=== PATIENT | female | born 1995 | race Caucasian/White ===

== ENCOUNTER 2016-12-23 20:36 | Emergency (ER) | payer BC ==
[~2016-12-23] VITALS: Ht 160 cm; Wt 63.1 kg
[~2016-12-23 20:36] MED LIST: DOXY100T PO; HYDR-3533 PO; Z.0.BCPILL PO
[2016-12-23] MEDS ORDERED: GADODIAMIDE PF 287 MG/ML 5 ML VIAL (for RAD MRI) IVCONTRAST ONE (20:37)
[2016-12-23 20:56] VITALS: BP 132/84; PULSE 87; RESP 12; TEMP 98.4; O2SAT 98
[2016-12-23 22:56] VITALS: BP 132/84; PULSE 87; RESP 14; TEMP 98.4
[2016-12-23] MEDS ORDERED: ACETAMINOPHEN 650 MG/20.3 ML UDC PO ONE (23:15)
--- NOTE | 2016-12-23 23:24 | PD ---
HPI Chief Complaint: Eye Problems/Injury Time Seen by Provider: 22:57 Travel History International Travel<30 days: No Contact w/Intl Traveler<30days: No Traveled to known affect area: No History of Present Illness HPI The patient is a 21-year-old female that complains of gradual onset pain around her left eye which is progressive and worsening. She went to an poultry pathologist today and they told her to go to a retinologist. She went to a retinologist and they told her she needed to see a neurologist. She came here to the emergency department today wanting MRI of the brain and orbits. PFSH Past Medical History Developmental Delay: No Diabetes: No Diminished Hearing: No Fibromyalgia: Yes Glaucoma: No Hepatitis: No Hiatal Hernia: No Hypertension: No Neurologic: Yes (neurosensitivity and biochemical deficiency) Respiratory: Yes Immunizations Current: Yes Thyroid Disease: No Influenza Vaccination: Yes PNEUMOCCOCAL Vaccine (Year): 2 ?: Unknown LMP: 12/02/2016 : 0 Para: 0 Miscarriage: 0 : 0 Past Surgical History Pacemaker: No Other Surgery: Yes (BREAST AUGMENTATION) Social History Alcohol Use: Yes (OCCASSIONALLY) Tobacco Use: No Substance Use: No Allergies-Medications (Allergen,Severity, Reaction): Coded Allergies: penicillin G (Unverified Allergy, Intermediate, RASH, 11/22/16) Reported Meds & Prescriptions Reported Meds & Active Scripts Active Lortab 5 mg/325 mg (Hydrocodone/Acetaminophen 5 mg/325 mg) 1 Tab 1 Tab PO Q4H PRN Doxycycline Hyclate 100 mg (Doxycycline Hyclate) 100 Mg Tab 1 Tab PO Q12H 14 Days Reported Control Pills (Miscellaneous Medication) Tab 1 Tab PO DAILY Review of Systems Except as stated in HPI: all other systems reviewed are Neg Physical Exam Narrative GENERAL: The patient is alert, oriented 3 in slight apparent distress with her left eye discomfort. Her vital signs are normal. SKIN: Focused skin assessment warm/dry. HEAD: Atraumatic. Normocephalic. EYES: Pupils equal and round. No scleral icterus. No injection or drainage. The fundi appear sharp bilaterally. ENT: No nasal bleeding or discharge. Mucous membranes pink and moist. NECK: Trachea midline. No JVD. CARDIOVASCULAR: Regular rate and rhythm. No murmur appreciated. RESPIRATORY: No accessory muscle use. Clear to auscultation. Breath sounds equal bilaterally. GASTROINTESTINAL: Abdomen soft, non-tender, nondistended. Hepatic and splenic margins not palpable. MUSCULOSKELETAL: No obvious deformities. No clubbing. No cyanosis. No edema. NEUROLOGICAL: Awake and alert. No obvious cranial nerve deficits. Motor grossly within normal limits. Normal speech. PSYCHIATRIC: Appropriate mood and affect; insight and judgment normal. Data Data Last Documented VS Vital Signs Date Time Temp Pulse Resp B/P (MAP) Pulse Ox O2 Delivery O2 Flow Rate FiO2 12/23/16 23:06 15 12/23/16 22:56 98.4 87 132/84 (100) 12/23/16 20:56 98 Orders Orders Complete Blood Count With Diff (12/23/16 23:06) Basic Metabolic Panel (Bmp) (12/23/16 23:06) Beta Hcg (Quant/Titer) (12/23/16 23:06) Acetaminophen 650 Mg/20 Ml Liq (Tylenol (12/23/16 23:15) Mri Brain W&W/O Contrast (12/24/16 23:03) Mri Orbits W&W/O Contrast (12/24/16 ) Gadodiamide Pf Inj (Omniscan Pf Inj) (12/23/16 20:37) Labs Laboratory Tests Test 12/23/16 23:20 White Blood Count 13.3 TH/MM3 Red Blood Count 5.45 MIL/MM3 Hemoglobin 15.5 GM/DL Hematocrit 45.7 % Mean Corpuscular Volume 83.9 FL Mean Corpuscular Hemoglobin 28.4 PG Mean Corpuscular Hemoglobin Concent 33.8 % Red Cell Distribution Width 12.1 % Platelet Count 311 TH/MM3 Mean Platelet Volume 8.9 FL Neutrophils (%) (Auto) 71.5 % Lymphocytes (%) (Auto) 20.9 % Monocytes (%) (Auto) 5.9 % Eosinophils (%) (Auto) 1.1 % Basophils (%) (Auto) 0.6 % Neutrophils # (Auto) 9.5 TH/MM3 Lymphocytes # (Auto) 2.8 TH/MM3 Monocytes # (Auto) 0.8 TH/MM3 Eosinophils # (Auto) 0.1 TH/MM3 Basophils # (Auto) 0.1 TH/MM3 CBC Comment DIFF FINAL Differential Comment Blood Urea Nitrogen 5 MG/DL Creatinine 0.78 MG/DL Random Glucose 99 MG/DL Calcium Level 9.3 MG/DL Sodium Level 137 MEQ/L Potassium Level 3.8 MEQ/L Chloride Level 102 MEQ/L Carbon Dioxide Level 28.4 MEQ/L Anion Gap 7 MEQ/L Estimat Glomerular Filtration Rate 92 ML/MIN Human Chorionic Gonadotropin, Quant LESS THAN 1 MIU/ML MDM Medical Decision Making Medical Screen Exam Complete: Yes Emergency Medical Condition: Yes Medical Record Reviewed: Yes Interpretation(s) The MRI of the orbits had a slight artifact, probably iron-containing eyeshadow , but are otherwise negative. The MRI of the brain with and without contrast is negative. Differential Diagnosis Orbital tumor, iritis, intracranial bleed-unlikely, eye pain etiology undetermined Narrative Course The patient appears to have a high pain etiology undetermined. She wears glasses and this may be a refractive air. Nevertheless, she is to follow-up with a neurologist. She is given the MR readings and the discs to take to his office. Diagnosis Primary Impression: Left eye pain Additional Instructions: You have left eye pain etiology undetermined. The next step is to follow-up with a neurologist. Try to cover pain with [id number] liquid Motrin and liquid Tylenol. Disposition: 01 DISCHARGE HOME Condition: Stable Reno Ramirez MD Dec 23, 2016 23:24
[2016-12-23 23:27] LABS: AUTOMATED NEUTROPHIL # 9.5 TH/MM3 (1.8-7.7); BASOPHIL # 0.1 TH/MM3 (0-0.2); BASOPHIL % 0.6 % (0.0-2.0); EOSINOPHIL # 0.1 TH/MM3 (0-0.4); EOSINOPHIL % 1.1 % (0.0-4.0); HEMATOCRIT 45.7 % (35.0-46.0); HEMO FLAGS DIFF FINAL; LYMPH % 20.9 % (9.0-44.0); LYMPHOCYTE # 2.8 TH/MM3 (1.0-4.8); MEAN CELL VOLUME 83.9 FL (80.0-100.0); MEAN CORPUSCULAR HEMOGLOBIN 28.4 PG (27.0-34.0); MEAN CORPUSCULAR HGB CONC 33.8 % (32.0-36.0); MONO % 5.9 % (0.0-8.0); NEUT % 71.5 % (16.0-70.0); PLATELET COUNT 311 TH/MM3 (150-450); RED BLOOD COUNT 5.45 MIL/MM3 (4.00-5.30); RED CELL DISTRIBUTION WIDTH 12.1 % (11.6-17.2); WHITE BLOOD COUNT 13.3 TH/MM3 (4.0-11.0)
[2016-12-23 23:35] LABS: CHLORIDE 102 MEQ/L (98-107); SODIUM (NA) 137 MEQ/L (136-145)
[2016-12-23 23:39] LABS: ANION GAP 7 MEQ/L (5-15); BICARBONATE 28.4 MEQ/L (21.0-32.0); BLOOD UREA NITROGEN 5 MG/DL (7-18)
[2016-12-23 23:42] LABS: GLOMERULAR FILTRATION RATE 92 ML/MIN (>89)
[2016-12-23 23:45] LABS: POTASSIUM 3.8 MEQ/L (3.5-5.1)
[2016-12-23 23:47] LABS: BETA HCG QUANT LESS THAN 1 MIU/ML (0-5)
--- NOTE | 2016-12-24 01:24 | RADRPT ---
EXAM DATE/TIME: 12/24/2016 00:31 [facility] COMPARISON: No previous studies available for comparison. INDICATIONS : Tumor. Left eye and temporal region pain. CONTRAST: 12 cc Omniscan (gadodiamide) IV MEDICAL HISTORY : Fibromyalgia. SURGICAL HISTORY : Breast augmentation. ENCOUNTER: Initial ACUITY: 1 month PAIN SCORE: 8/10 LOCATION: cranial TECHNIQUE: Multiplanar, multisequence MRI of the brain was performed both prior to and following the administrat ion of paramagnetic contrast. FINDINGS: CEREBRUM: The ventricles are normal for age. No evidence of midline shift, mass lesion, hemorrhage or acute in farction. No extraaxial fluid collections are seen. The pituitary gland and suprasellar cistern are normal in configuration. WHITE MATTER: No significant signal abnormalities are seen in the white matter. POSTERIOR FOSSA: The cerebellum and brainstem are intact. The 4th ventricle is midline. The cerebellopontine angle is unremarkable. The cerebellar tonsils are normal in position. DIFFUSION IMAGING: No focal areas of restricted diffusion are seen. No evidence of acute infarction. EXTRACRANIAL: The visualized portions of the orbits and paranasal sinuses are unremarkable. POST-CONTRAST: No abnormal areas of parenchymal or dural enhancement. No evidence of blood-brain barrier breakdown. CONCLUSION: Negative exam. Stefan Holloway MD on December 24, 2016 at 1:21 Board Certified Radiologist. This report was verified electronically.
--- NOTE | 2016-12-24 01:39 | RADRPT ---
EXAM DATE/TIME: 12/24/2016 00:31 [facility] COMPARISON: No previous studies available for comparison. INDICATIONS : Tumor. Left eye and temporal region pain. CONTRAST: 12 cc Omniscan (gadodiamide) IV MEDICAL HISTORY : Fibromyalgia. SURGICAL HISTORY : Breast augmentation. ENCOUNTER: Initial ACUITY: 1 month PAIN SCORE: 8/10 LOCATION: Left eye. TECHNIQUE: Multiplanar, multisequence MRI examination was performed. FINDINGS: PRESEPTAL: The preseptal soft tissues are normal thickness. GLOBES: There is susceptibility artifact in the region of the globes possibly due to regional eye shadow. As such, the globes themselves are incompletely evaluated. EXTRAOCULAR MUSCLES: Symmetric and normal thickness. ORBITAL ALMEIDA: Intact. The greater wing of the sphenoid is intact. OPTIC NERVES: Normal size. The optic canal is not enlarged. The retroconal fat is normal in appearance. LACRIMAL GLANDS: No evidence of mass. RETROAPICAL REGION: The optic chiasm is grossly intact. The visualized portion of the cavernous sinus and brainstem is i ntact. CONCLUSION: 1. Incomplete evaluation of the globes do to susceptibility artifact. This is probably due to some re gional iron containing eye shadow. 2. Otherwise negative Stefan Holloway MD on December 24, 2016 at 1:29 Board Certified Radiologist. This report was verified electronically.
[2016-12-24 02:24] VITALS: BP 145/81; PULSE 90; RESP 15; TEMP 98; O2SAT 97
== END 2016-12-24 03:01 | disposition home or self-care (01) ==
LOC: PHED 20:36
DX: H57.12 Ocular pain, left eye (principal); M79.7 Fibromyalgia
CPT/HCPCS: 70543; 70553; 80048; 84702; 85025; 99284; A9579

== ENCOUNTER 2017-02-12 21:44 | Emergency (ER) | payer BC ==
[2017-02-12 21:47] VITALS: BP 142/81; RESP 20; TEMP 97.9
--- NOTE | 2017-02-12 21:58 | PD ---
HPI Chief Complaint: Abdominal Pain Time Seen by Provider: 21:55 Travel History International Travel<30 days: No Contact w/Intl Traveler<30days: No Traveled to known affect area: No History of Present Illness HPI 21 year-old female presents to the emergency department by private transportation for complaint of abdominal pain. Patient has reportedly noted this discomfort for approximately 2 weeks. Pain is localized to the left side of the abdomen and left lower quadrant. No reported dysuria frequency urgency or flank pain. No reported hematuria. Patient is currently menstruating. Patient's had a partially 5 pound weight loss. Patient's had nausea without vomiting and diarrhea has been noted. Patient does not report mucoid or bloody stool. Patient denies fever or chills. Patient states that she frequently has diarrhea every time she eats food. No personal history family history of inflammatory bowel disease Crohn's or ulcerative colitis. Pain is moderate to severe in intensity. Patient has prior history of ovarian cyst. Patient does not take control pills or use contraceptives but is socially active. No vaginal discharge or abnormal bleeding. No reported history of endometriosis. Patient is unable to identify exacerbating or alleviating factors. Patient has taken no anti-inflammatories because she is afraid to take pills. [facility] Past Medical History Narrative Medical Fibromyalgia, breast augmentation; occasional alcohol use; nursing notes reviewed Developmental Delay: No Diabetes: No Diminished Hearing: No Fibromyalgia: Yes Glaucoma: No Hepatitis: No Hiatal Hernia: No Hypertension: No Neurologic: Yes (neurosensitivity and biochemical deficiency) Respiratory: Yes Immunizations Current: Yes Thyroid Disease: No PNEUMOCCOCAL Vaccine (Year): 2 LMP: NOW : 0 Para: 0 Miscarriage: 0 : 0 Past Surgical History Pacemaker: No Other Surgery: Yes (BREAST AUGMENTATION) Social History Alcohol Use: Yes (OCCASSIONALLY) Tobacco Use: No Substance Use: No Allergies-Medications (Allergen,Severity, Reaction): Coded Allergies: penicillin G (Unverified Allergy, Intermediate, RASH, 02/12/17) Reported Meds & Prescriptions Reported Meds & Active Scripts Active Review of Systems Except as stated in HPI: all other systems reviewed are Neg Physical Exam Narrative GENERAL: Well-developed well-nourished female in no acute distress no respiratory distress SKIN: Warm and dry. HEAD: Normocephalic. EYES: No scleral icterus. No injection or drainage. NECK: Supple, trachea midline. No JVD or lymphadenopathy. CARDIOVASCULAR: Regular rate and rhythm without murmurs, gallops, or rubs. RESPIRATORY: Breath sounds equal bilaterally. No accessory muscle use. GASTROINTESTINAL: Abdomen soft, mild left upper quadrant left lower quadrant tenderness to palpation without guarding or rebound, nondistended. MUSCULOSKELETAL: No cyanosis, or edema. BACK: Nontender without obvious deformity. No CVA tenderness. Data Data Last Documented VS Vital Signs Date Time Temp Pulse Resp B/P (MAP) Pulse Ox O2 Delivery O2 Flow Rate FiO2 02/12/17 23:07 79 20 137/79 (98) 99 02/12/17 21:47 97.9 Orders Orders Complete Blood Count With Diff (02/12/17 22:06) Comprehensive Metabolic Panel (02/12/17 22:06) Lipase (02/12/17 22:06) Urinalysis - C+S If Indicated (02/12/17 22:06) Ct Abd/Pel W Iv Contrast(Rout) (02/12/17 22:06) Iv Access Insert/Monitor (02/12/17 22:06) Ecg Monitoring (02/12/17 22:06) Oximetry (02/12/17 22:06) Sodium Chloride 0.9% Flush (Ns Flush) (02/12/17 22:15) Ed Urine Pregnancytest Poc (02/12/17 22:06) Ketorolac Inj (Toradol Inj) (02/12/17 23:30) Iohexol 350 Inj (Omnipaque 350 Inj) (02/12/17 23:23) Labs Laboratory Tests Test 02/12/17 22:00 02/12/17 22:12 White Blood Count 9.4 TH/MM3 Red Blood Count 5.28 MIL/MM3 Hemoglobin 14.9 GM/DL Hematocrit 44.7 % Mean Corpuscular Volume 84.6 FL Mean Corpuscular Hemoglobin 28.1 PG Mean Corpuscular Hemoglobin Concent 33.3 % Red Cell Distribution Width 12.3 % Platelet Count 286 TH/MM3 Mean Platelet Volume 9.2 FL Neutrophils (%) (Auto) 58.5 % Lymphocytes (%) (Auto) 29.8 % Monocytes (%) (Auto) 9.2 % Eosinophils (%) (Auto) 1.6 % Basophils (%) (Auto) 0.9 % Neutrophils # (Auto) 5.4 TH/MM3 Lymphocytes # (Auto) 2.8 TH/MM3 Monocytes # (Auto) 0.9 TH/MM3 Eosinophils # (Auto) 0.2 TH/MM3 Basophils # (Auto) 0.1 TH/MM3 CBC Comment DIFF FINAL Differential Comment Blood Urea Nitrogen 14 MG/DL Creatinine 0.77 MG/DL Random Glucose 84 MG/DL Total Protein 8.2 GM/DL Albumin 4.3 GM/DL Calcium Level 8.9 MG/DL Alkaline Phosphatase 72 U/L Aspartate Amino Transf (AST/SGOT) 14 U/L Alanine Aminotransferase (ALT/SGPT) 22 U/L Total Bilirubin 1.0 MG/DL Sodium Level 137 MEQ/L Potassium Level 3.4 MEQ/L Chloride Level 102 MEQ/L Carbon Dioxide Level 26.6 MEQ/L Anion Gap 8 MEQ/L Estimat Glomerular Filtration Rate 93 ML/MIN Lipase 114 U/L Urine Color YELLOW Urine Turbidity CLEAR Urine pH 6.0 Urine Specific Rogers 1.023 Urine Protein NEG mg/dL Urine Glucose (UA) NEG mg/dL Urine Ketones NEG mg/dL Urine Occult Blood NEG Urine Nitrite NEG Urine Bilirubin NEG Urine Leukocyte Esterase NEG Urine RBC 0-3 /hpf Urine Squamous Epithelial Cells 0-5 /hpf Urine Amorphous Sediment SMALL Urine Hyaline Casts /lpf Urine Mucus MOD /lpf Microscopic Urinalysis Comment CULT NOT INDICATED MDM Medical Decision Making Medical Screen Exam Complete: Yes Emergency Medical Condition: Yes Medical Record Reviewed: Yes Interpretation(s) poc hcg: negative CBC & BMP Diagram 02/12/17 22:00 Total Protein 8.2, Albumin 4.3, Calcium Level 8.9, Alkaline Phosphatase 72, Aspartate Amino Transf (AST/SGOT) 14 L, Alanine Aminotransferase (ALT/SGPT) 22, Total Bilirubin 1.0 Vital Signs Date Time Temp Pulse Resp B/P (MAP) Pulse Ox O2 Delivery O2 Flow Rate FiO2 02/12/17 23:07 79 20 137/79 (98) 99 02/12/17 22:28 74 20 142/76 (98) 99 02/12/17 22:08 20 02/12/17 21:47 97.9 20 142/81 (101) UA: grossly wnl Last Impressions Abdomen/Pelvis CT 02/12/172205 Signed Impressions: Service Date/Time: Sunday, February 12, 2017 23:11 - CONCLUSION: 1. No evidence of acute abdominal or pelvic process. No masses are identified. 2. Diverticulosis without evidence of diverticulitis. Ruben Block MD Differential Diagnosis Abdominal pain diarrheal illness, colitis, inflammatory bowel disease, ovarian cyst, UTI, ectopic , musculoskeletal injury Narrative Course IV access obtained specimens collected and sent for resulting [id number] hCG ordered Patient given Toradol 30 mg IV for pain Imaging study reveals no acute abnormalities although does identify diverticulosis without evidence of diverticulitis and associated with the patient and her mother at bedside Patient stable for outpatient management at this time and given prescription for Zofran and encouraged to follow up closely with gastrologist and add dietary fiber into her really regimen Diagnosis Primary Impression: Abdominal pain Additional Impression: Diverticulosis of colon without diverticulitis Referrals: Plan[employer] Operator call for appointment Primary Care Physician 2 days Patient Instructions: General Instructions Additional Instructions: Follow clear liquid diet for next 12-24 hours advance as tolerated bland/Ashlyn diet then regular diet avoiding fried and fatty foods and adding dietary fiber to intake Increase fluid hydration Take as needed ibuprofen/Advil/Motrin or fever 100.4F or greater or for pain associated with inflammation [place] take Zofran as prescribed as needed for nausea and/or vomiting Follow-up with your primary care provider Follow up with manager crisis Return to the emergency for free concerns or change in condition Med/Other Pt SpecificInfo: Prescription(s) given Scripts Ondansetron Odt (Zofran Odt) 4 Mg Tab 4 MG SL Q6HR Y for Nausea/Vomiting, #10 TAB 0 Refills Prov: Marjorie Lu MD 02/13/17 Disposition: 01 DISCHARGE HOME Condition: Stable Marjorie Lu MD Feb 12, 2017 21:58
[2017-02-12] MEDS ORDERED: SODIUM CHLORIDE 0.9% FLUSH 10 ML FLUSH IV FLUSH PRN (22:15)
[2017-02-12 22:19] LABS: BLOOD, URINE NEG (NEG); GLUCOSE,URINE NEG (NEG); KETONE, URINE NEG (NEG); NITRITE,URINE NEG (NEG)
[2017-02-12 22:28] VITALS: BP 142/76; PULSE 74; RESP 20; O2SAT 99
[2017-02-12 22:33] LABS: URINE COLOR YELLOW (YELLW/STRAW)
[2017-02-12 22:34] LABS: MUCUS URINE MOD /lpf (OCC); RBC, URINE 0-3 /hpf (0-3); SQUAMOUS EPITHELIAL CELL URINE 0-5 /hpf (0-5)
[2017-02-12 22:35] LABS: COMMENT (UR) CULT NOT INDICATED; CULTURE IF INDICATED CULT NOT INDICATED
[2017-02-12 22:47] LABS: CHLORIDE 102 MEQ/L (98-107); POTASSIUM 3.4 MEQ/L (3.5-5.1); SODIUM (NA) 137 MEQ/L (136-145)
[2017-02-12 22:48] LABS: AUTOMATED NEUTROPHIL # 5.4 TH/MM3 (1.8-7.7); BASOPHIL # 0.1 TH/MM3 (0-0.2); BASOPHIL % 0.9 % (0.0-2.0); EOSINOPHIL # 0.2 TH/MM3 (0-0.4); EOSINOPHIL % 1.6 % (0.0-4.0); HEMATOCRIT 44.7 % (35.0-46.0); HEMO FLAGS DIFF FINAL; LYMPH % 29.8 % (9.0-44.0); LYMPHOCYTE # 2.8 TH/MM3 (1.0-4.8); MEAN CELL VOLUME 84.6 FL (80.0-100.0); MEAN CORPUSCULAR HEMOGLOBIN 28.1 PG (27.0-34.0); MEAN CORPUSCULAR HGB CONC 33.3 % (32.0-36.0); MONO % 9.2 % (0.0-8.0); NEUT % 58.5 % (16.0-70.0); PLATELET COUNT 286 TH/MM3 (150-450); RED BLOOD COUNT 5.28 MIL/MM3 (4.00-5.30); RED CELL DISTRIBUTION WIDTH 12.3 % (11.6-17.2); WHITE BLOOD COUNT 9.4 TH/MM3 (4.0-11.0)
[2017-02-12 22:51] LABS: ANION GAP 8 MEQ/L (5-15); BICARBONATE 26.6 MEQ/L (21.0-32.0); BLOOD UREA NITROGEN 14 MG/DL (7-18)
[2017-02-12 22:54] LABS: ALT (GPT) 22 U/L (10-53); AST (GOT) 14 U/L (15-37); GLOMERULAR FILTRATION RATE 93 ML/MIN (>89)
[2017-02-12 22:57] LABS: ALKALINE PHOSPHATASE 72 U/L (45-117)
[2017-02-12 23:07] VITALS: BP 137/79; PULSE 79; RESP 20; O2SAT 99
[2017-02-12] MEDS ORDERED: IOHEXOL 350 MG/ML 10 ML VIAL (for RAD DIAG) IVCONTRAST ONE (23:23)
[2017-02-12] MEDS ORDERED: KETOROLAC TROMETHAMINE 30 MG/ML (IVP) VIAL IV PUSH ONE (23:30)
--- NOTE | 2017-02-12 23:45 | RADRPT ---
EXAM DATE/TIME: 02/12/2017 23:11 [facility] COMPARISON: No previous studies available for comparison. INDICATIONS : Left lower quadrant pain. IV CONTRAST: 100 cc Omnipaque 350 (iohexol) IV ORAL CONTRAST: No oral contrast ingested. RADIATION DOSE: 6.03 CTDIvol (mGy) MEDICAL HISTORY : None SURGICAL HISTORY : None. ENCOUNTER: Initial ACUITY: 2 weeks PAIN SCALE: 5/10 LOCATION: Left lower quadrant TECHNIQUE: Volumetric scanning of the abdomen and pelvis was performed. Using automated exposure control and ad justment of the mA and/or kV according to patient size, radiation dose was kept as low as reasonably achievable to obtain optimal diagnostic quality images. DICOM format image data is available electro nically for review and comparison. FINDINGS: Examination of the lung bases demonstrates no abnormality. No pleural fluid is identified. No pulmona ry nodules are present. The liver and spleen are free of focal defects. The gallbladder and pancreas demonstrate no abnormality. The adrenal glands are normal. The kidneys demonstrate no evidence of ignacio id renal mass or hydronephrosis. No free fluid or abdominal masses are identified. No para-aortic aristides nopathy is seen. Examination of the pelvis demonstrates no evidence of free fluid or pelvic mass. No abnormally enlarg ed inguinal or retroperitoneal lymph nodes are present. The bladder is unremarkable. There is diverti culosis without evidence of diverticulitis. CONCLUSION: 1. No evidence of acute abdominal or pelvic process. No masses are identified. 2. Diverticulosis without evidence of diverticulitis. Ruben Block MD on February 12, 2017 at 23:40 Board Certified Radiologist. This report was verified electronically.
[2017-02-13] MEDS ORDERED: ZOFR4TAB3 SL (00:28)
[2017-02-13 00:46] VITALS: BP 141/84
[2017-02-13 00:50] VITALS: RESP 18
== END 2017-02-13 00:50 | disposition home or self-care (01) ==
LOC: PHED 21:44
DX: R10.32 Left lower quadrant pain (principal); R10.12 Left upper quadrant pain; K57.30 Diverticulosis of large intestine without perforation or abscess without bleeding; R11.0 Nausea; R19.7 Diarrhea, unspecified; Z87.39 Personal history of other diseases of the musculoskeletal system and connective tissue; Z86.69 Personal history of other diseases of the nervous system and sense organs; Z87.09 Personal history of other diseases of the respiratory system
CPT/HCPCS: 74177; 80053; 81001; 83690; 84703; 85025; 96374; 99285; J1885; Q9967